=== PATIENT | male | born 1970 | race Caucasian/White ===

== ENCOUNTER 2024-09-13 07:00 | Day surgery (SDC) | payer OTHER, SELFPAY ==
[2024-09-11 14:15] VITALS: BMI 26.4
--- NOTE | 2024-09-13 07:12 | EXP.HP ---
History of Present Illness *Admission Date: 09/13/24 *History of present illness: Mr. Pizano is a 53-year-old gentleman with dysphagia/swallowing difficulties. He does state that this dysphagia often occurs once a month with solid foods and he will have to drink a lot of fluids to wash this down. He feels that food is getting stuck in the lower mid retrosternal region. This occurred more recently [place] and he could not get the food down. He eventually went to the emergency department at [facility]. They did do an EGD in the emergency department with a food bolus being pushed down into the stomach. They told him that he would need to follow-up with someone soon and he elected to come back to see me. He is a known patient and had his routine colonoscopy care with me. He did have a colonoscopy with me and October 2021 and had 2 diminutive polyps (hyperplastic polyps x 2) removed. He also had some left-sided diverticulosis. He was on fiber for a while but stopped taking the Citrucel. The patient while in the emergency department had an EKG that was normal. He does continue to have some chest tightness which she describes as burning rather than pressure (i.e. pyrosis). He reports no reflux but does get regurgitation of fluids only when food gets hung up. He reports no bloating, belching, reflux or dyspepsia. He has regular bowel function. He did note that he would get this symptom of chest burning while drinking water at 4 PM and this would help some. He has had some borderline hypertension recently. His father had coronary artery disease with coronary stents. He has not had no prior cardiac evaluation or stress testing. [facility] Disclaimer: The information contained in this section may have been updated after the patient was seen, as this information can be updated by other users. Surgical History History of hip replacement Family History Other Cancer Thyroid disorder Social History (Updated 09/11/24 @ 14:18 by Lori Liu RN) Smoking Status: Never smoker alcohol intake: current substance use type: unknown current occupational status: employed Travel in the last 8 weeks?: Inside the [place] Review of Systems Review of Systems Review of systems (narrative): Negative *Cardiovascular Comments: Negative *Gastrointestinal Comments: Negative *Genitourinary Comments: Negative *Musculoskeletal Comments: Negative *Neurologic Comments: Negative Meds Home Medications and Allergies Home Medications ?Medication ?Instructions ?Recorded ?Confirmed ?Type bupropion HCl 75 mg tablet 75 mg PO DAILY 09/04/24 09/13/24 History cetirizine 10 mg capsule (Zyrtec) 10 mg PO DAILY PRN Allergy Symptoms 09/04/24 09/13/24 History cholecalciferol (vitamin D3) 50 50 mcg PO DAILY 09/04/24 09/13/24 History mcg (2,000 unit) capsule (Vitamin D3) New Prescriptions to Start Prescriptions: Allergies Allergy/AdvReac Type Severity Reaction Status Date / Time No Known Allergies Allergy Verified 09/11/24 14:13 Exam Data for Last 24 hours I & O for Last 24 hours: Intake & Output 09/10/24 09/11/24 09/12/24 09/13/24 23:59 23:59 23:59 23:59 Weight 195 lb *Routine HEENT Exam Head: Present normocephalic Eye: Present EOMI and PERRL ENT: Present mucous membranes moist *Routine Neck Exam Neck: Present supple *Routine Respiratory Exam Respiratory: Present CTA bilaterally *Routine Cardiovascular Exam Cardiovascular: Present RRR *Routine Abdominal Exam Abdominal: Present soft and normoactive bowel sounds; Absent tenderness *Routine Rectal Exam Rectal:: deferred *Routine Genitalia Exam Genitalia:: deferred *Routine Extremities Exam Extremities: Absent cyanosis, clubbing or edema *Routine Skin Exam Skin: Present warm; Absent rash *Routine Neurological Exam Neurological: Present alert and oriented X3 Assessment and Plan *Assessment and plan (1) Chest pain: Status: Acute Category: Medical Code(s): R07.9 - Chest pain, unspecified (2) Pyrosis: Status: Acute Category: Medical Code(s): R12 - Heartburn (3) Dysphagia: Status: Acute Category: Medical Code(s): R13.10 - Dysphagia, unspecified Plan A/P: 1. Noncardiac chest pain, pyrosis and dysphagia is the preprocedural diagnosis. The patient will be anesthetized/sedated using MAC sedation. The patient has been seen and examined. Cardiac and lung assessment prior to the examination is stable. Proceed with planned diagnostic EGD.
[2024-09-13 07:22] VITALS: BP 131/88; PULSE 62; RESP 18; TEMP 36.1; O2SAT 96
--- NOTE | 2024-09-13 08:30 | EXP.ANES.CKL ---
[facility] Disclaimer: The information contained in this section may have been updated after the patient was seen, as this information can be updated by other users. Surgical History History of hip replacement Family History Other Cancer Thyroid disorder Social History Smoking Status: Never smoker alcohol intake: current substance use type: unknown current occupational status: employed Travel in the last 8 weeks?: Inside the [place] [facility] Anesthesia Checklist Patient Identification Patient Identification: Arm Band and Verbal (Name & ) Structural Data Admitted From: Home Planned Operative Procedure/s: EGD Consent for Planned Operative Procedure(s) Verified: Yes Verified Documents: Surgical Consent and History and Physical NPO Status Verified Time NPO: 00:00 Additional verifications Anesthesia Reactions: No Airway Assessment Mallampati Score:: Class II Dentition: Good Dentition Neurological Assessment Level of Consciousness: Awake, Alert and Appropriate Hx Seizures: No Anesthesia Plan Anesthesia Risk discussed: Yes Anesthesia Plan: Verified ASA Class: II Anesthesia Type: MAC
--- NOTE | 2024-09-13 08:34 | HMH.PROCNOTE ---
[facility] Procedure Note Date: 09/13/24 Time: 08:34 Procedure Note:: Upper Endoscopy Procedure Report: Esophagogastroduodenoscopy with cold biopsies and TTS balloon dilation Endoscopost: Qasim Gutiérrez II, MD Referring Physician: Jase Wilson M.D. Date of Procedure: September 13, 2024 Equipment: Olympus GIF 190 standard upper endoscope Sedation: MAC sedation Indications: Mr. Pizano is a 53-year-old gentleman who is here for diagnostic/therapeutic upper endoscopy. He has had dysphagia/swallowing difficulties. He does state that this dysphagia often occurs once a month with solid foods and he will have to drink a lot of fluids to wash this down. He feels that food is getting stuck in the lower mid retrosternal region. This occurred more recently [place] and he could not get the food down. He eventually went to the emergency department at [facility]. They did do an EGD in the emergency department with a food bolus being pushed down into the stomach. They told him that he would need to follow-up with someone soon and he elected to come back to see me. He is a known patient and had his routine colonoscopy care with me. He did have a colonoscopy with [facility] and October 2021 and had 2 diminutive polyps (hyperplastic polyps x 2) removed. He also had some left-sided diverticulosis. He was on fiber for a while but stopped taking the Citrucel. The patient while in the emergency department had an EKG that was normal. He does continue to have some chest tightness which she describes as burning rather than pressure (i.e. pyrosis). He reports no reflux but does get regurgitation of fluids only when food gets hung up. He reports no bloating, belching, reflux or dyspepsia. He has regular bowel function. He did note that he would get this symptom of chest burning while drinking water at 4 PM and this would help some. He has had some borderline hypertension recently. His father had coronary artery disease with coronary stents. He has not had no prior cardiac evaluation or stress testing. Procedure: Prior to the procedure, a history and physical exam was performed, and patient's medications and allergies were reviewed. The risks, benefits and alternatives of the sedation and procedure were discussed with the patient. All questions were answered and informed consent was obtained. The patient was brought to the procedure room. Patient identification and proposed procedure were verified by the physician and the nurse. The patient was placed in a left lateral decubitus position and the scope was passed under direct vision. Throughout the procedure, the patient's blood pressure, pulse, and oxygen saturations were monitored continuously. The upper GI endoscopy was accomplished without difficulty. The patient tolerated the procedure well. Findings: The scope was passed directly into the upper esophagus and advanced to the third portion of the duodenum. The post bulbar duodenum and duodenal bulb were normal with normal mucosa and conniventes. The scope was withdrawn through a normal duodenal bulb and pylorus into the stomach. The antrum body and fundus of the stomach were grossly normal. Upon retroflexion there was no hiatal hernia. The scope was then withdrawn into the esophagus. There was a distal esophageal ring with diameter approximately 13 mm. There was also corrugation and furrowing of the distal, mid and proximal esophagus consistent with eosinophilic esophagitis. Cold biopsies were taken from the distal and proximal esophagus to rule out eosinophilic esophagitis. Next, the esophagus was gently dilated to 20 mm/60 [place] with a TTS hydrostatic balloon. There was shattering of the distal ring. There was mild resistance at the cricopharyngeus. The remainder of the esophageal mucosa was normal. Impression: 1. Eosinophilic esophagitis with distal fibrotic ring status post dilation to 20 mm Plan: I will follow-up the biopsies and initiate PPI therapy. I will have the patient follow-up in 8 to 12 weeks. If symptoms persist, I would consider Eohilia or Dupixent. I will obtain RAST food allergy testing today.
[2024-09-13 08:46] VITALS: BP 140/97; PULSE 72; RESP 16; TEMP 36.3; O2SAT 93
[2024-09-13 08:56] VITALS: BP 139/82; PULSE 59; RESP 18; O2SAT 97
[2024-09-13 09:06] VITALS: BP 152/96; PULSE 56; RESP 18; O2SAT 99
[2024-09-13 09:16] VITALS: BP 148/80; PULSE 60; RESP 18; TEMP 36.3; O2SAT 99
== END 2024-09-13 09:16 | disposition home or self-care (01) ==
PROVIDERS: PCP Internal Medicine; Visit Provider Internal Medicine Gastroenterology
PROC: 0DJ08ZZ Inspection of Upper Intestinal Tract, Via Natural or Artificial Opening Endoscopic (ICD-10-PCS; CPT 43239; principal; 2024-09-13 08:30)
DX: K21.00 Gastro-esophageal reflux disease with esophagitis, without bleeding (principal); Z80.9 Family history of malignant neoplasm, unspecified; Z79.899 Other long term (current) drug therapy
CPT/HCPCS: 43239; 43249; 36415; 86003; C1726; J2003; J2704